=== PATIENT | female | born 1950 ===

== ENCOUNTER 2016-11-30 08:57 | Day surgery (SDC) | payer OTHER ==
[2016-11-30] MEDS ORDERED: Lactated Ringer's 500 ML IV ONE (09:26)
[2016-11-30] MEDS ORDERED: Sodium Chloride 0.9% 250 ML IV ONE (09:26)
[2016-11-30] MEDS ORDERED: Propofol 10 mg/ml Inj (20 ML) ONE (10:17)
[2016-11-30] MEDS ORDERED: Midazolam 2 MG/2 ML VIAL ONE (10:17)
[2016-11-30] MEDS ORDERED: ePHEDrine 50 mg/ml Inj ONE (10:36)
[2016-11-30 11:13] VITALS: TEMP 97
[2016-11-30 11:20] VITALS: BP 121/56; PULSE 82; RESP 18; O2SAT 100
== END 2016-11-30 11:35 | disposition home or self-care (01) ==
LOC: H.ENDO 08:57
PROVIDERS: ATTEND Internal Medicine Gastroenterology
DX: R19.7 Diarrhea, unspecified (principal); E11.22 Type 2 diabetes mellitus with diabetic chronic kidney disease; I12.0 Hypertensive chronic kidney disease with stage 5 chronic kidney disease or end stage renal disease; E03.9 Hypothyroidism, unspecified; N18.6 End stage renal disease; D64.9 Anemia, unspecified; D12.5 Benign neoplasm of sigmoid colon